=== PATIENT | female | born 1940 | race Caucasian/White ===

== ENCOUNTER → 2017-10-12 | Outpatient (REF) | payer MEDICARE ==
[~2017-10-12] MED LIST: ACET500T68 PO; AMLO-99 PO; AMLO1TAB65 PO; ASPI-1441 PO; CHOL100052 PO; FISH OIL1 CAP PO; FOLI0.8T29 PO; GLUC1TAB13 PO; MAGN100T PO; METF500T4 PO; METO-253 PO; METXR500 PO; QUIN20TA3 PO; SIMV-49 PO; TRA50 PO; TRAM-420 PO; TUM500 PO; WARF-12 PO; WARF-18 PO; WARF4TAB54 PO; [UNRECOGNIZED DRUG - CODE] PO; [UNRECOGNIZED DRUG - CODE] PO
== END ==
LOC: ZZSENDIN 12:00
PROVIDERS: ATTEND Physician Assistant
DX: D48.5 Neoplasm of uncertain behavior of skin (principal)
CPT/HCPCS: 88305

== ENCOUNTER → 2017-11-24 | Outpatient (CLI) | payer MEDICARE ==
[~2017-11-24] MED LIST changes: -WARF-18 PO; +WARF5TAB23 PO
--- NOTE | 2017-11-25 10:28 | RADIOLOGY IMAGING REPORT ---
FACILITY: [facility] PATIENT NAME: CALISTA JOHNSON : [id number] MR: [id number] V: [id number] EXAM DATE: [id number] ORDERING PHYSICIAN: KEVEN HOLGUIN TECHNOLOGIST: Kianna Dupont PROCEDURE:BILATERAL DIGITAL SCREENING MAMMOGRAM WITH CAD ASSISTED INTERPRETATION & 3D TOMOSYNTHESIS COMPARISON:Prior mammograms 07/31/11. INDICATIONS:SCREENING FINDINGS: There is prominent fatty replacement throughout the breasts. In the 12 o'clock position left breast there is a large lobular mass no present on the prior study. Left breast Ultrasound is recommended. Increasing microcalcifications are scattered throughout the breasts. DIAGNOSTIC CATEGORY 0--INCOMPLETE: NEED ADDITIONAL IMAGING EVALUATION. RECOMMENDATIONS: ULTRASOUND: LEFT BREAST. IMPRESSION: BIRADS 0: Incomplete Left breast Ultrasound recommended as described Dictated by: Jenna Arango M.D. on 11/24/2017 at 16:51 Transcribed by: HITESH on 11/25/2017 at 8:53 Approved by: Jenna Arango M.D. on 11/25/2017 at 10:26 [facility]
--- NOTE | 2017-11-25 10:28 | RADIOLOGY IMAGING REPORT ---
FACILITY: [facility] PATIENT NAME: CALISTA JOHNSON : [id number] MR: [id number] V: [id number] EXAM DATE: [id number] ORDERING PHYSICIAN: KEVEN HOLGUIN TECHNOLOGIST: Haritha Elmore PROCEDURE:US LEFT BREAST COMPARISON:None. INDICATIONS:Left breast Ultrasound further evaluation. FINDINGS: In the 12 o'clock position of the Left breast there is a bi-lobe measuring 2.7 x 3.1 x 1.8cm. This will correspond to the mammographic findings. DIAGNOSTIC CATEGORY 2--BENIGN FINDING. RECOMMENDATIONS: ROUTINE MAMMOGRAM AND CLINICAL EVALUATION. IMPRESSION: BIRADS 2: Benign finding There is a 2.1cm bi-lobe cyst 12 o'clock position of the Left breast which will correspond to the recent mammographic finding Dictated by: Jenna Arango M.D. on 11/24/2017 at 16:49 Transcribed by: HITESH on 11/25/2017 at 9:01 Approved by: Jenna Arango M.D. on 11/25/2017 at 10:26 [facility]
== END ==
LOC: MAMO 02:29
PROVIDERS: ATTEND Physician Assistant
DX: Z12.31 Encounter for screening mammogram for malignant neoplasm of breast (principal); R92.1 Mammographic calcification found on diagnostic imaging of breast; R92.8 Other abnormal and inconclusive findings on diagnostic imaging of breast; N63.10 Unspecified lump in the right breast, unspecified quadrant
CPT/HCPCS: 77063; 77067

== ENCOUNTER 2018-11-13 13:17 | Emergency (ER) | payer MEDICARE ==
[~2018-11-13 13:17] MED LIST changes: +AMLO-127 PO; -AMLO-99 PO; +WARF4TAB15 PO; -WARF4TAB54 PO
[2018-11-13] MEDS ORDERED: FURO-45 PO (13:31)
[2018-11-13] MEDS ORDERED: POTA10CA40 PO (13:31)
[2018-11-13] MEDS ORDERED: CLINDAMYCIN(*) 600 MG/NS 50 ML 50 ML IVPB ONE (13:50)
--- NOTE | 2018-11-13 14:00 | ER Report ---
History and Physical Time Seen By MD: 13:35 Hx. of Stated Complaint: RIGHT UPPER DENTAL PAIN AND SWELLING HPI/ROS CHIEF COMPLAINT: Dental pain, facial swelling HISTORY OF PRESENT ILLNESS: 78-year-old female presents with one-day history of dental pain and facial swelling. She states that she broke her tooth one week ago and has not had further problems with it, was waiting go to the dentist until she developed increased pain and today noticed swelling and redness on the right side of her face. Pain starts at right mandible but radiates primarily from right maxilla and radiates to the inferior right eye. She has felt flushed but has not had clear fevers, she has felt mild chills, she has had nausea. She has no vomiting, chest pain, shortness breath, abdominal pain, change in urination, or other rashes. She reports that she has prediabetes but is on metformin. She is also on O2, 2 L for CHF. She has remote unknown allergy to penicillin. She denies tobacco use REVIEW OF SYSTEMS: Constitutional: above Eyes: No discharge. ENT: no swelling, no difficulty swallowing Cardiovascular: No chest pain, no palpitations. Respiratory: No cough, no shortness of breath. Gastrointestinal: No abdominal pain, no vomiting. Genitourinary: no dysuria Musculoskeletal: No back pain. Skin: No rashes other than above Neurological: No headache. Remainder of the 14 system rev: Yes Allergies: Coded Allergies: Penicillins (Verified Allergy, Intermediate, RASH, 05/23/07) adhesive tape (Verified Allergy, Intermediate, RASH, 05/23/07) morphine (Verified Allergy, Intermediate, RASH, 05/23/07) Home Meds Active Scripts Clindamycin Hcl (CLINDAMYCIN HCL) 300 Mg Capsule, 300 MG PO Q6H for 7 Days, #28 CAPSULE Prov:JANETH JUNG MD 11/13/18 Reported Medications Potassium Chloride (POTASSIUM CHLORIDE) 10 Meq Capsule.er, 10 MEQ PO DAILY 11/13/18 Furosemide (FUROSEMIDE) 20 Mg Tablet, 1 TAB PO DAILY, TAB 11/13/18 Folic Acid (FOLIC ACID) 0.8 Mg Tablet, 0.8 MG PO BID 01/25/15 Magnesium Amino Acid Chelate (MAGNESIUM) 100 Mg Tablet, PO DAILY 01/25/15 Acetaminophen (TYLENOL EXTRA STRENGTH) 500 Mg Tablet, 500 MG PO DAILY PRN for PAIN 01/25/15 Warfarin Sodium (WARFARIN SODIUM) 5 Mg Tablet, 5 MG PO QDAY 01/25/15 Cholecalciferol (Vitamin D3) (VITAMIN D) 1,000 Unit Tablet, 1000 UNIT PO QDAY 01/25/15 Tramadol Hcl (TRAMADOL HCL) 50 Mg Tablet, 50-100 MG PO Q4-6H 01/25/15 Glucosamine Hcl/Chondr Mckeon A Na (OSTEO BI-FLEX CAPLET) 1 Each Tablet, 1 EACH PO QDAY 01/25/15 Simvastatin (SIMVASTATIN) 20 Mg Tablet, 20 MG PO QDAY, TAB 09/10/14 Metoprolol Tartrate (METOPROLOL TARTRATE) 50 Mg Tab, 0.5 TAB PO BID, TAB 09/10/14 Metformin Hcl (METFORMIN HCL ER) 500 Mg Tab.er.24, 1 TAB PO QDAY TAKE ONE TABLET BY MOUTH ONCE A DAY WITH FOOD 09/10/14 Amlodipine Besylate (AMLODIPINE BESYLATE) 10 Mg Tablet, 0.5 TAB PO QDAY, TAB TAKE ONE TABLET BY MOUTH EVERY DAY 09/10/14 Reviewed Nurses Notes: Yes Hx Smoking: Yes Smoking Status: Former Smoker, Light Tobacco Smoker Hx Substance Use Disorder: No Hx Alcohol Use: No Constitutional Vital Sign - Last 24 Hours 11/13/18 11/13/18 11/13/18 11/13/18 13:17 13:23 13:25 13:30 Temp 98.1 Pulse ??? 76 Resp 14 B/P (MAP) 139/74 (95) 139/74 153/74 (100) Pulse Ox 91 O2 Delivery Room Air 11/13/18 11/13/18 11/13/18 11/13/18 13:32 13:47 14:00 14:02 Pulse 73 75 72 B/P (MAP) 137/66 (89) Pulse Ox 93 91 93 11/13/18 11/13/18 11/13/18 11/13/18 14:17 14:30 14:32 14:47 Pulse 70 ??? 73 B/P (MAP) 130/56 (80) Pulse Ox 92 87 92 11/13/18 11/13/18 11/13/18 11/13/18 15:00 15:02 16:30 16:38 Pulse 72 70 B/P (MAP) 129/68 (88) 96/46 (63) 124/66 (85) Pulse Ox 92 92 Intake and Output 11/13/18 11/13/18 11/14/18 15:00 23:00 07:00 Intake Total 50 ml Balance 50 ml Physical Exam General Appearance: The patient is alert, has no immediate need for airway protection and no signs of toxicity. Eyes: Pupils equal and round no pallor or injection. ENT, Mouth: Mucous membranes are moist. Patient has tenderness to percussion of the root of tooth #4. She has a subacute appearing Mohan 3 fracture. She has some tenderness palpation of the buccal mucosa with fullness consistent with cellulitis but without fluctuance or mass. She has erythema throughout the right side of the face again with mild induration but without fluctuance or mass. There is no purulent drainage around the dentition. She has no other masses or acute dental fracture. Respiratory: There are no retractions, lungs are clear to auscultation. Cardiovascular: Regular rate and rhythm. Gastrointestinal: Abdomen is soft and non tender, no masses Neurological: alert Skin: Warm and dry, no rashes. Musculoskeletal: Extremities are nontender, nonswollen and have full range of motion. DIFFERENTIAL DIAGNOSIS: After history and physical exam differential diagnosis was considered for periapical abscess, cellulitis, deep space infection, or other etiology of symptoms. Medical Decision Making Data Points Result Diagram: 11/13/18 1400 11/13/18 1400 Laboratory Hematology Test 11/13/18 14:00 Red Blood Count 4.75 M/uL (4.17-5.56) Mean Corpuscular Volume 89.5 fL (80.0-96.0) Mean Corpuscular Hemoglobin 29.5 pg (26.0-33.0) Mean Corpuscular Hemoglobin Concent 33.0 g/dL (32.0-36.0) Red Cell Distribution Width 15.7 % (11.5-14.5) Mean Platelet Volume 8.8 fL (7.2-11.1) Neutrophils (%) (Auto) 74.7 % (39.4-72.5) Lymphocytes (%) (Auto) 16.0 % (17.6-49.6) Monocytes (%) (Auto) 8.8 % (4.1-12.4) Eosinophils (%) (Auto) 0.1 % (0.4-6.7) Basophils (%) (Auto) 0.4 % (0.3-1.4) Nucleated RBC Relative Count (auto) 0.0 /100WBC Neutrophils # (Auto) 9.2 K/uL (2.0-7.4) Lymphocytes # (Auto) 2.0 K/uL (1.3-3.6) Monocytes # (Auto) 1.1 K/uL (0.3-1.0) Eosinophils # (Auto) 0.0 K/uL (0.0-0.5) Basophils # (Auto) 0.1 K/uL (0.0-0.1) Nucleated RBC Absolute Count (auto) 0.00 K/uL Sodium Level 138 mmol/L (137-145) Potassium Level 4.1 mmol/L (3.5-5.0) Chloride Level 103 mmol/L (98-107) Carbon Dioxide Level 27 mmol/L (22-31) Blood Urea Nitrogen 20 mg/dl (7-18) Creatinine 1.10 mg/dl (0.52-1.04) Glomerular Filtration Rate Calc 47.8 Random Glucose 148 mg/dl (75-110) Calcium Level 9.3 mg/dl (8.4-10.2) Total Bilirubin 0.9 mg/dl (0.2-1.3) Aspartate Amino Transf (AST/SGOT) 14 U/L (0-35) Alanine Aminotransferase (ALT/SGPT) 17 U/L (0-56) Alkaline Phosphatase 60 U/L (0-126) Total Protein 7.4 g/dl (6.3-8.2) Albumin 4.1 g/dl (3.5-5.0) Chemistry Test 11/13/18 14:00 White Blood Count 12.3 k/uL (4.5-11.0) Red Blood Count 4.75 M/uL (4.17-5.56) Hemoglobin 14.0 g/dL (12.0-16.0) Hematocrit 42.5 % (34.0-47.0) Mean Corpuscular Volume 89.5 fL (80.0-96.0) Mean Corpuscular Hemoglobin 29.5 pg (26.0-33.0) Mean Corpuscular Hemoglobin Concent 33.0 g/dL (32.0-36.0) Red Cell Distribution Width 15.7 % (11.5-14.5) Platelet Count 214 K/uL (150-450) Mean Platelet Volume 8.8 fL (7.2-11.1) Neutrophils (%) (Auto) 74.7 % (39.4-72.5) Lymphocytes (%) (Auto) 16.0 % (17.6-49.6) Monocytes (%) (Auto) 8.8 % (4.1-12.4) Eosinophils (%) (Auto) 0.1 % (0.4-6.7) Basophils (%) (Auto) 0.4 % (0.3-1.4) Nucleated RBC Relative Count (auto) 0.0 /100WBC Neutrophils # (Auto) 9.2 K/uL (2.0-7.4) Lymphocytes # (Auto) 2.0 K/uL (1.3-3.6) Monocytes # (Auto) 1.1 K/uL (0.3-1.0) Eosinophils # (Auto) 0.0 K/uL (0.0-0.5) Basophils # (Auto) 0.1 K/uL (0.0-0.1) Nucleated RBC Absolute Count (auto) 0.00 K/uL Glomerular Filtration Rate Calc 47.8 Calcium Level 9.3 mg/dl (8.4-10.2) Total Bilirubin 0.9 mg/dl (0.2-1.3) Aspartate Amino Transf (AST/SGOT) 14 U/L (0-35) Alanine Aminotransferase (ALT/SGPT) 17 U/L (0-56) Alkaline Phosphatase 60 U/L (0-126) Total Protein 7.4 g/dl (6.3-8.2) Albumin 4.1 g/dl (3.5-5.0) ED Course/Re-evaluation ED Course 78-year-old female presents with right cellulitis that is likely odontogenic in origin. Do not find clear evidence of abscess on exam, however as patient drove 100 miles to get here, we will CT to rule out early or small abscess at this point. We'll initiate IV antibiotics. As she is allergic to penicillins, we'll i nitiate clindamycin. Patient has been counseled on the potential risks and complications including C. difficile. Decision to Disposition Date: Nov 13, 2018 Decision to Disposition Time: 16:45 Depart Departure Latest Vital Signs Vital Signs Date Time Temp Pulse Resp B/P (MAP) Pulse Ox O2 Delivery O2 Flow Rate FiO2 11/13/18 16:38 124/66 (85) 11/13/18 16:30 70 92 11/13/18 13:25 98.1 14 Room Air Impression: Primary Impression: Facial cellulitis Condition: Improved Disposition: HOME OR SELF-CARE New Scripts Clindamycin Hcl (CLINDAMYCIN HCL) 300 Mg Capsule 300 MG PO Q6H for 7 Days, #28 CAPSULE Prov: JANETH JUNG MD 11/13/18 Patient Instructions: Cellulitis (ED) Additional Instructions: As we discussed, please take the clindamycin every 6 hours until gone. You may use Tylenol 650 mg every 4-6 hours for pain. You may also use ice 20 minutes at a time every hour. Please return for worsening swelling, pain, fevers, vomiting or any concerns. As we discussed, the clindamycin may have side effects including diarrhea. If you began having blood in the diarrhea, black stools, or diarrhea more than 3-4 times a day please follow up immediately for further evaluation. JANETH JUNG MD Nov 13, 2018 14:00
[2018-11-13 14:04] LABS: PLATELET COUNT, AUTOMATED 214 K/uL (150-450)
[2018-11-13] MEDS ORDERED: IOPAMIDOL 76% 75 ML INFUS BTL 75 ML ONE (15:39)
[2018-11-13 16:38] VITALS: BP 124/66
[2018-11-13] MEDS ORDERED: CLIN300C99 PO (16:43)
--- NOTE | 2018-11-13 16:48 | RADIOLOGY IMAGING REPORT ---
FACILITY: PATIENT NAME: Vicki Flores : 1940 MR: [id number] V: [id number] EXAM DATE: ORDERING PHYSICIAN: JANETH JUNG TECHNOLOGIST: Location: [facility] [place] Patient: Vicki Flores : 1940 Visit/Account:[id number] Date of Sevice: 11/13/2018 CT FACIAL BONES W CONTRAST HISTORY: maxillary odontogenic infection, surrounding edema CT FACIAL BONES W CONTRAST One of the following dose optimization techniques was utilized in the performance of this exam: Autom ated exposure control; adjustment of the mA and/or kV according to the patient's size; or use of an i terative reconstruction technique. Specific details can be referenced in the facility's radiology C T exam operational policy. Mcheek mucosa is COMPARISON STUDIES: none TECHNIQUE: Axial images were obtained from the superior aspect of the orbits through the inferior as pect of mandible. Coronal reformatted images were obtained from the axial source data. No IV contrast was administered. FINDINGS: Soft Tissues: There is soft tissue edema and swelling of the gingival tissue medially contiguous to t he first and second premolars. Adjacent soft tissue edema. No abscess noted. Dental caries noted with in the first and second premolars. There may be of very small subperiosteal abscess developing along the alveolar ridge. (Image 43 series 2) Mandible / TMJ: negative Maxillae / pterygoid plates: negative Zygoma / zygomatic arches: negative Orbits: negative Nasal bones / nasal septum: negative Sinuses: Mucosal paraseptal thickening changes in the maxillary sinuses. Visualized brain: negative IMPRESSION: 1. Dental caries first and second premolars of the right maxilla with adjacent gingival inflammation and possible small subperiosteal abscess developing. Mild soft tissue edema and inflammation in the r ight buccal space. No deep space abscess or inflammation. Report Dictated By: Sreekanth Chaidez MD at 11/13/2018 4:07 PM Report E-Signed By: Sreekanth Chaidez MD at 11/13/2018 4:44 PM WSN:[id number]
== END 2018-11-13 16:50 | disposition home or self-care (01) ==
LOC: ER 13:30
DX: L03.211 Cellulitis of face (principal)
CPT/HCPCS: 70487; 85025; 96365; 99284; J3490; Q9967; 82040; 82247; 82310; 82374; 82435; 82565; 82947; 84075; 84132; 84155; 84295; 84450; 84460; 84520

== ENCOUNTER → 2019-03-07 | Outpatient (CLI) | payer MEDICARE ==
[~2019-03-07] MED LIST changes: +CLIN300C99 PO; +FURO-45 PO; +POTA10CA40 PO
--- NOTE | 2019-03-07 13:03 | RADIOLOGY IMAGING REPORT ---
[place] [facility] [place] Vicki Flores : 1940 MR: [id number] V: [id number] EXAM DATE: ORDERING PHYSICIAN: KEVEN HOLGUIN TECHNOLOGIST: Location: [facility] Patient: Vicki Flores : 1940 Visit/Account:[id number] Date of Sevice: 03/07/2019 DEXA Scan Clinical history: Osteopenia. Comparison: DEXA scan from 04/24/2016. LUMBAR SPINE: The bone mineral density (BMD) measured from L1-L4 correlates with a Z-score 0.5 and a T-score of -0 .5 which is Normal as defined by the World Health Organization. The corresponding risk of fracture i n the lumbar spine is Not increased compared with a young adult reference population. This value has increased by 5.1 % since the prior study. More than 5% change is considered significant. HIP: Bone mineral density (BMD) measured in the Left femoral neck region correlates with a Z-score -1.8 an d a T-score of -3.5 which is osteoporosis as defined by the World Health Organization. The corresp onding risk of fracture in the hip is high compared with a young adult reference population. The tota l hip value has decreased by 3.4 % since the prior study. More than 5% change is considered signific ant. Bone mineral density (BMD) measured in the Femoral Neck region measures 0.554 g/cm2. IMPRESSION: 1. Lumbar spine: Normal. There has been increase in the bone mineral density since the previous exa m. 2. Left femoral neck region: Osteoporosis. There has been decreased in the bone mineral density of the total hip since the previous exam. 3. Femoral Neck: Bone Mineral Density is 0.554 g/cm2 The next DEXA scan of this patient should include the following sites: L1-L4 and the left hip. FRAX? WHO Fracture Risk Assessment Tool link: <http://www.shef.ac.uk/FRAX/tool.jsp?locationValue=9> PLEASE NOTE: 1) The World Health Organization defines low BMD as follows: T-score Normal > -1 Osteopenia < -1 and > -2.5 Osteoporosis < -2.5 without fractures Established osteoporosis < -2.5 with fractures 2) In general, you may wish to consider: Diagnosis Treatment Follow-up DEXA Normal BMD Prevention 2-3 years Osteopenia Prevention/therapy 1-2 years Osteoporosis Therapy Yearly 3) Fracture risk estimated from the T-score is more accurate for vertebral fractures (often spontane ous) than for hip fractures. Report Dictated By: Elmo Murray at 03/07/2019 12:56 PM Report E-Signed By: Elmo Murray at 03/07/2019 12:57 PM WSN:[id number]
--- NOTE | 2019-03-08 10:49 | RADIOLOGY IMAGING REPORT ---
FACILITY: [facility] [place] PATIENT NAME: CALISTA JOHNSON : [id number] MR: [id number] V: [id number] EXAM DATE: ORDERING PHYSICIAN: KEVEN HOLGUIN TECHNOLOGIST: Kianna Dupont PROCEDURE: BILATERAL DIGITAL SCREENING MAMMOGRAM WITH CAD ASSISTED INTERPRETATION & 3D TOMOSYNTHESIS REASON FOR STUDY: Screening FAMILY HISTORY OF BREAST CANCER: None BREAST PROCEDURES/TREATMENTS: 2 benign surgical biopsies Right breast COMPARISON: 11/24/17 VIEWS OBTAINED: Bilateral 2D & 3D full field CC & MLO projections BREAST DENSITY: There are scattered areas of fibroglandular density throughout the breasts. MAMMOGRAM FINDINGS: There are coarse benign appearing calcifications again seen throughout the breasts. In the upper outer quadrant of the Left breast there is an ovoid nodular density that appears much smaller than on the prior study. This has previously been shown to represent a cyst. IMPRESSION: BIRADS 2: Benign finding. DIAGNOSTIC CATEGORY 2--BENIGN FINDING. RECOMMENDATIONS: ROUTINE MAMMOGRAM AND CLINICAL EVALUATION. Dictated by: Jenna Arango M.D. on 03/07/2019 at 15:11 Transcribed by: WILMER on 03/08/2019 at 6:58 Approved by: Jenna Arango M.D. on 03/08/2019 at 10:47 [facility]
== END ==
LOC: MAMO 01-24 01:28
PROVIDERS: ATTEND Physician Assistant
DX: Z12.31 Encounter for screening mammogram for malignant neoplasm of breast (principal); M81.0 Age-related osteoporosis without current pathological fracture; N60.02 Solitary cyst of left breast
CPT/HCPCS: 77063; 77067; 77080